=== PATIENT | female | born 1950 | race Caucasian/White ===

== ENCOUNTER 2018-04-07 09:32 | Emergency (ER) | payer MEDICARE, BC ==
--- NOTE | 2018-04-07 10:04 | ED Physician Documentation ---
History of Present Illness - History obtained from History obtained from: Patient, Family - History of Present Illness Timing: How many weeks ago (1) - Additonal information Additional information: 68-year-old female with no prior history has developed left upper chest pain that is radiating to the left arm. She has had some shortness of breath associated with this. She does start do some traveling in her job. 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 Review of Systems Constitutional: reports: Fatigue. denies: Fever, Chills, Myalgias Eyes: denies: Decreased vision Ears: denies: Ear pain Nose: reports: Rhinorrhea / runny nose, Congestion Throat: denies: Sore throat Cardiac: reports: Chest pain / pressure. denies: Palpitations, Pedal edema, Calf pain Respiratory: reports: Dyspnea, Cough. denies: Wheezing GI: denies: Abdominal Pain, Nausea, Vomiting : denies: Dysuria, Frequency Skin: denies: Rash Musculoskeletal: reports: Neck pain, Back pain, Extremity pain Neurologic: denies: Generalized weakness, Focal weakness, Numbness PD PAST MEDICAL HISTORY - Allergies Allergies/Adverse Reactions: Allergies Allergy/AdvReac Type Severity Reaction Status Date / Time No Known Drug Allergies Allergy Verified 04/07/18 09:41 PD ED PE NORMAL - Vitals Vital signs reviewed: Yes (hypertensive ) - General General: Alert and oriented X 3, No acute distress, Well developed/nourished - Neck Neck: Supple, no meningeal sign, No bony TTP, Other (There is some spasm to the trapezius but this does not extend to the occiput. There is tenderness to the supraspinatous on the left and over the anterior portion of the chest wall on the left side the area is not tender. 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, No motor deficit, No sensory deficit, Normal speech Eye Opening: Spontaneous Motor: Obeys Commands Verbal: Oriented GCS Score: 15 - Psych Psych: Normal mood, Normal affect Results - Vitals Vitals: Vital Signs - 24 hr 04/07/18 04/07/18 04/07/18 09:38 10:15 11:52 Temperature 36.2 C L 36.6 C Heart Rate 74 63 71 Respiratory 17 16 15 Rate Blood Pressure 133/93 H 118/76 119/76 O2 Saturation 98 96 97 Oxygen O2 Source Room air - EKG (time done) 0939 Rate: Rate (enter#) (69) Rhythm: NSR Ischemia: Normal ST segments Compare to prior EKG: Old EKG unavailable Computer interpretation: Agree with computer - Labs Labs: Laboratory Tests 04/07/18 04/07/18 04/07/18 10:02 10:02 10:02 WBC 4.4 L RBC 4.82 Hgb 14.7 Hct 42.7 MCV 88.7 MCH 30.5 MCHC 34.5 RDW 13.2 Plt Count 237 MPV 7.0 L Neut # (Auto) 2.5 Lymph # (Auto) 1.4 L [place] # (Auto) 0.3 Eos # (Auto) 0.1 Baso # (Auto) 0.0 Absolute Nucleated RBC 0.00 Nucleated RBC % 0.0 D-Dimer Sodium 139 Potassium 4.0 Chloride 105 Carbon Dioxide 26 Anion Gap 8.0 BUN 15 Creatinine 0.5 Estimated GFR (MDRD) 123 Glucose 92 Calcium 9.0 Total Bilirubin 0.7 AST 24 ALT 26 Alkaline Phosphatase 67 Troponin I < 0.04 Total Protein 6.6 L Albumin 4.0 Globulin 2.6 Albumin/Globulin Ratio 1.5 Lipase 44 Urine Color Urine Clarity Urine pH Ur Specific [place] Urine Protein Urine Glucose (UA) Urine Ketones Urine Occult Blood Urine Nitrite Urine Bilirubin Urine Urobilinogen Ur Leukocyte Esterase Ur Microscopic Review Urine Culture Comments 04/07/18 04/07/18 10:02 10:15 WBC RBC Hgb Hct MCV MCH MCHC RDW Plt Count MPV Neut # (Auto) Lymph # (Auto) [place] # (Auto) Eos # (Auto) Baso # (Auto) Absolute Nucleated RBC Nucleated RBC % D-Dimer < 200.0 L Sodium Potassium Chloride Carbon Dioxide Anion Gap BUN Creatinine Estimated GFR (MDRD) Glucose Calcium Total Bilirubin AST ALT Alkaline Phosphatase Troponin I Total Protein Albumin Globulin Albumin/Globulin Ratio Lipase Urine Color YELLOW Urine Clarity CLEAR Urine pH 7.0 Ur Specific [place] 1.010 Urine Protein NEGATIVE Urine Glucose (UA) NEGATIVE Urine Ketones NEGATIVE Urine Occult Blood NEGATIVE Urine Nitrite NEGATIVE Urine Bilirubin NEGATIVE Urine Urobilinogen 0.2 (NORMAL) Ur Leukocyte Esterase NEGATIVE Ur Microscopic Review NOT INDICATED Urine Culture Comments NOT INDICATED - Rads (name of study) 2 view chest Radiology: Prelim report reviewed (Impression: Normal two-view chest radiography.), EMP read indepedently, See rad report PD MEDICAL DECISION MAKING - ED course Complexity details: reviewed results, re-evaluated patient, considered differential, d/w patient, d/w family ED course: 68-year-old female with some atypical chest pain that appears to be related to tension in her left shoulder and neck has a lot of stress at her work. Today here in the emergency department she has a negative d-dimer and she does travel a fair amount. She has negative troponin she has a normal-appearing electrocardiogram and has no ectopy here in the emergency department. She has negative troponin. Her level of pain is ache. She is discharged to home with referral to her primary care doctor. - Sepsis Event Vital Signs: Vital Signs - 24 hr 04/07/18 04/07/18 04/07/18 09:38 10:15 11:52 Temperature 36.2 C L 36.6 C Heart Rate 74 63 71 Respiratory 17 16 15 Rate Blood Pressure 133/93 H 118/76 119/76 O2 Saturation 98 96 97 Oxygen O2 Source Room air Departure - Departure Disposition: 01 Home, Self Care Clinical Impression: Atypical chest pain, Stress at work Condition: Stable Instructions: ED Stress React, ED Chest Pain Atypical Unkn Cause Follow-Up: [facility] [Provider Group] Discharge Date/Time: 04/07/18 12:13
[2018-04-07 10:12] LABS: BASOPHILS % (AUTO) 0.8 %; EOSINOPHILS # (AUTO) 0.1 10^3/uL (0.0-0.7); EOSINOPHILS % (AUTO) 2.9 %; HGB - HEMOGLOBIN 14.7 g/dL (12.0-16.0); LYMPHOCYTES # (AUTO) 1.4 10^3/uL (1.5-3.5); LYMPHOCYTES % (AUTO) 32.1 %; MEAN CORPUSCULAR HEMOGLOBIN 30.5 pg (27.0-31.0); MEAN CORPUSCULAR HGB CONC 34.5 g/dL (32.0-36.0); MEAN CORPUSCULAR VOLUME 88.7 fL (81.0-99.0); MONOCYTES # (AUTO) 0.3 10^3/uL (0.0-1.0); MONOCYTES % (AUTO) 6.5 %; NEUTROPHILS # (AUTO) 2.5 10^3/uL (1.5-6.6); NEUTROPHILS % (AUTO) 57.7 %; PLT - PLATELET COUNT 237 10^3/uL (130-450); RED BLOOD COUNT 4.82 10^6/uL (4.20-5.40); RED CELL DISTRIBUTION WIDTH 13.2 % (12.0-15.0); WHITE BLOOD COUNT 4.4 x10^3/uL (4.8-10.8)
[2018-04-07 10:26] LABS: ALBUMIN/GLOBULIN RATIO 1.5 (1.0-2.2); BILIRUBIN,TOTAL 0.7 mg/dL (0.2-1.0); CREATININE 0.5 mg/dL (0.4-1.0); TOTAL PROTEIN 6.6 g/dL (6.7-8.2)
[2018-04-07 10:31] LABS: BILIRUBIN,URINE NEGATIVE (NEGATIVE); GLUCOSE, URINE (UA) NEGATIVE (NEGATIVE); KETONES,URINE (UA) NEGATIVE (NEGATIVE); LEUKOCYTE ESTERASE, URINE NEGATIVE (NEGATIVE); NITRITE,URINE NEGATIVE (NEGATIVE); OCCULT BLOOD,URINE NEGATIVE (NEGATIVE); PROTEIN,URINE NEGATIVE (NEGATIVE); UROBILINOGEN,URINE 0.2 (NORMAL) E.U./dL (NORMAL)
[2018-04-07 10:35] LABS: CLARITY,URINE CLEAR (CLEAR)
--- NOTE | 2018-04-07 10:42 | XRAY Report ---
Reason: left upper chest pain Procedure Date: 04/07/2018 Accession Number: [id number] / [id number] Procedure: XR - Chest 2 View X-Ray CPT Code: 97742 FULL RESULT: EXAM: CHEST RADIOGRAPHY EXAM DATE: 04/07/2018 10:30 AM. CLINICAL HISTORY: Left upper chest pain. COMPARISON: None. TECHNIQUE: 2 views. FINDINGS: Lungs/Pleura: No focal opacities evident. No pleural effusion. No pneumothorax. Normal volumes. Mediastinum: Heart and mediastinal contours are unremarkable. Other: None. IMPRESSION: Normal 2-view chest radiography. RADIA
[2018-04-07] MEDS ORDERED: DEXAMETHASONE 10 MG/ML VIAL PO STA (10:48)
[2018-04-07 11:55] VITALS: BP 119/76
== END 2018-04-07 12:13 | disposition home or self-care (01) ==
LOC: ED 09:32
DX: R07.89 Other chest pain (principal); Z56.89 Other problems related to employment
CPT/HCPCS: 36415; 71046; 80053; 81001; 81003; 83690; 84484; 85025; 85379; 87086; 93005; 99283; 99284

== ENCOUNTER 2019-05-23 11:08 | Emergency (ER) | payer MEDICARE, BC ==
--- NOTE | 2019-05-23 11:38 | ED Physician Documentation ---
History of Present Illness - Stated complaint Stated Complaint: COUGH/SORE THROAT/EAR PX - Chief complaint Chief Complaint: Resp - Additonal information Additional information: This is a 69 year old female presenting with cough, sorethroat, and ear discomfort for several days. She denies chest pain, dyspnea, vomiting, or abdominal pain. The discomfort in her ears is worse on the left side. She feels like they are plugged up. She denies fever. 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 - Present Medications Home Medications: Ambulatory Orders Medication Instructions Recorded Confirmed Amox/Clav 875/125 [Augmentin] 1 each PO Q12H #14 tablet 05/23/19 Benzonatate [Tessalon Perle] 100 - 200 mg PO TID PRN #30 capsule 05/23/19 Diphenhydramine HCl [Allergy 25 - 50 mg PO Q6HR PRN #30 tablet 05/23/19 Medication] Fluticasone [Flonase] 120 sprays TERENCE BID PRN #1 bottle 05/23/19 - Allergies Allergies/Adverse Reactions: Allergies Allergy/AdvReac Type Severity Reaction Status Date / Time No Known Drug Allergies Allergy Verified 05/23/19 11:16 - Social History Does the pt smoke?: No Smoking Status: Never smoker Does the pt drink ETOH?: Yes Does the pt have substance abuse?: No PD ED PE NORMAL - General General: Alert and oriented X 3 - HEENT HEENT: PERRL, Other (Serous effusion on left) - Neck Neck: Supple, no meningeal sign - Cardiac Cardiac: RRR - Respiratory Respiratory: No respiratory distress, Clear bilaterally - Abdomen Abdomen: Soft, Non tender, Non distended - Derm Derm: Warm and dry - Neuro Neuro: Alert and oriented X 3 Results - Vitals Vitals: Oxygen O2 Source Room air PD MEDICAL DECISION MAKING - ED course ED course: Pt is very well appearing, she has symptoms of a viral syndrome without fever or symptom duration or exam findings to suggest pneumonia or sinusitis. She does have a serous effusion on the left with signs of inflammation but without purulence at this time. I discussed that she has a viral URI with a serous otitis media, I prescribed flonase, diphenhydramine, tesslaon pearls, and discussed that if she is developing worsening left ear discomfort despite supportive care she may start the antibiotic prescribed. I recommended PCP follow up and reviewed return precautions and patient was discharged home. Departure - Departure Disposition: 01 Home, Self Care Clinical Impression: URI (upper respiratory infection) Qualifiers: URI type: unspecified viral URI Qualified Code(s): J06.9 - Acute upper respiratory infection, unspecified Serous otitis media Qualifiers: Chronicity: acute Laterality: left Recurrence: not specified as recurrent Qualified Code(s): H65.02 - Acute serous otitis media, left ear Condition: Good Instructions: ED Otitis Media Serous Adult, ED Viral Syndrome Follow-Up: Your,PCP [Other] - Within 1 week Prescriptions: Diphenhydramine HCl [Allergy Medication] 25 - 50 mg PO Q6HR PRN #30 tablet PRN Reason: Allergy Symptoms Amox/Clav 875/125 [Augmentin] 1 each PO Q12H #14 tablet Benzonatate [Tessalon Perle] 100 - 200 mg PO TID PRN #30 capsule PRN Reason: Cough Fluticasone [Flonase] 120 sprays TERENCE BID PRN #1 bottle PRN Reason: Nasal Congestion Comments: You appear to have a upper respiratory infection, you also have a collection of fluid behind your left eardrum. This may be due to an early infection, or it may be due to eustachian tube dysfunction from your viral illness. Please try the Flonase, Benadryl, as well as ibuprofen 600 mg every 6 hours and Tylenol 650 mg every 6 hours as needed for fever or discomfort. If you are developing increasing ear pain, fever, or if your symptoms are not improving you may start the antibiotic for ear infection. Follow-up with your primary care provider, And return to the emergency department if you are developing worsening symptoms such as shortness of breath or fever despite the Tylenol and ibuprofen Discharge Date/Time: 05/23/19 12:13
[2019-05-23 12:13] VITALS: BP 133/88
== END 2019-05-23 12:13 | disposition home or self-care (01) ==
LOC: ED 11:08
DX: J06.9 Acute upper respiratory infection, unspecified (principal); H65.02 Acute serous otitis media, left ear
CPT/HCPCS: 99283

== ENCOUNTER 2020-01-14 14:32 | Outpatient (CLI) | payer MEDICARE, BC | END 2020-01-14 14:33 | disposition home or self-care (01) | LOC: LAB 14:32 | PROVIDERS: ATTEND Registered Nurse | DX: R50.9 Fever, unspecified (principal) | CPT/HCPCS: 81599 ==

== ENCOUNTER 2020-05-21 16:25 | Outpatient (CLI) | payer MEDICARE, BC | END 2020-05-21 16:26 | disposition home or self-care (01) | LOC: COV 16:25 | PROVIDERS: ATTEND Family Medicine | DX: Z20.828 Contact with and (suspected) exposure to other viral communicable diseases (principal) ==

== ENCOUNTER 2020-08-23 12:10 | Outpatient (CLI) | payer MEDICARE, BC | END 2020-08-23 23:59 | disposition home or self-care (01) | LOC: COV 12:10 | PROVIDERS: ATTEND Family Medicine | DX: Z20.822 Contact with and (suspected) exposure to COVID-19 (principal) ==

== ENCOUNTER 2020-10-02 11:11 | Emergency (ER) | payer MEDICARE, BC ==
[2020-10-02] MEDS ORDERED: oxyCODONE 5 MG TABLET PO STA (11:36)
[2020-10-02] MEDS ORDERED: IBUPROFEN 600 MG TABLET PO STA (11:36)
--- NOTE | 2020-10-02 11:38 | ED Physician Documentation ---
PD HPI LOWER EXT INJURY - Stated complaint Stated Complaint: L LEG PX - Chief complaint Chief Complaint: Ext Problem - History obtained from History obtained from: Patient - Additional information Additional information: Leg pain in L hamstring starting last night. At times severe. No radiation. No weak/numb/tingling. No injury. 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 - Present Medications Home Medications: Ambulatory Orders Medication Instructions Recorded Confirmed Amox/Clav 875/125 [Augmentin] 1 each PO Q12H #14 tablet 05/23/19 Benzonatate [Tessalon Perle] 100 - 200 mg PO TID PRN #30 capsule 05/23/19 Diphenhydramine HCl [Allergy 25 - 50 mg PO Q6HR PRN #30 tablet 05/23/19 Medication] Fluticasone [Flonase] 120 sprays TERENCE BID PRN #1 bottle 05/23/19 Ibuprofen [Motrin] 800 mg PO Q8H PRN #10 tablet 10/02/20 Oxycodone HCl/Acetaminophen 1 - 2 each PO Q6H PRN #14 tablet 10/02/20 [Percocet 5-325 mg Tablet] - Allergies Allergies/Adverse Reactions: Allergies Allergy/AdvReac Type Severity Reaction Status Date / Time No Known Drug Allergies Allergy Verified 10/02/20 11:20 - Social History Does the pt smoke?: No Smoking Status: Never smoker Does the pt drink ETOH?: Yes Does the pt have substance abuse?: No PD ED PE NORMAL - Vitals Vital signs reviewed: Yes - General General: Alert and oriented X 3, No acute distress - Back Back: No CVA TTP, No spinal TTP - Extremities Extremities: Other (Muscular TTP upper l hamstring, no skin changes.) - Neuro Neuro: Alert and oriented X 3, No motor deficit, No sensory deficit, Normal speech Results - Vitals Vitals: Vital Signs - 24 hr 10/02/20 10/02/20 11:13 12:18 Temperature 36.8 C 36.6 C Heart Rate 83 71 Respiratory 18 18 Rate Blood Pressure 132/82 H 125/75 O2 Saturation 99 97 Oxygen O2 Source Room air - Labs Labs: Laboratory Tests 10/02/20 10/02/20 11:49 11:49 WBC 6.1 RBC 5.05 Hgb 15.0 Hct 45.4 MCV 89.9 MCH 29.7 MCHC 33.0 RDW 12.6 Plt Count 297 MPV 8.9 Neut # (Auto) 3.8 Lymph # (Auto) 1.7 [place] # (Auto) 0.5 Eos # (Auto) 0.1 Baso # (Auto) 0.0 Absolute Nucleated RBC 0.00 Nucleated RBC % 0.0 Sodium 138 Potassium 4.6 Chloride 105 Carbon Dioxide 24 Anion Gap 9.0 BUN 18 Creatinine 0.6 Estimated GFR (MDRD) 99 Glucose 94 Calcium 9.9 PD MEDICAL DECISION MAKING - ED course ED course: 70-year-old woman presents with pain in the hamstring. The focality and onset are not suggestive of DVT. Pain-free after meds here. She wonders if it might be shingles, discussed with her that it is possible although there is no rash now she will look out for it and return for specific treatment if a rash develops. Departure - Departure Disposition: 01 Home, Self Care Clinical Impression: Pain of lower extremity Qualifiers: Laterality: left Qualified Code(s): M79.605 - Pain in left leg Condition: Stable Record reviewed to determine appropriate education?: Yes Instructions: ED Acute Pain [facility]O Prescriptions: Ibuprofen [Motrin] 800 mg PO Q8H PRN #10 tablet PRN Reason: PAIN &/OR FEVER Oxycodone HCl/Acetaminophen [Percocet 5-325 mg Tablet] 1 - 2 each PO Q6H PRN #14 tablet PRN Reason: pain Comments: The cause of your pain is not clear, but nothing to suggest a serious or dangerous etiology. That said please return for new or worsening symptoms. Follow-up with your physician. Discharge Date/Time: 10/02/20 12:23
[2020-10-02 11:57] LABS: BASOPHILS % (AUTO) 0.7 %; EOSINOPHILS # (AUTO) 0.1 10^3/uL (0.0-0.7); EOSINOPHILS % (AUTO) 1.3 %; HCT - HEMATOCRIT 45.4 % (37.0-47.0); LYMPHOCYTES # (AUTO) 1.7 10^3/uL (1.5-3.5); MEAN CORPUSCULAR HEMOGLOBIN 29.7 pg (27.0-31.0); MEAN CORPUSCULAR VOLUME 89.9 fL (81.0-99.0); MEAN PLATELET VOLUME 8.9 fL (7.9-10.8); MONOCYTES # (AUTO) 0.5 10^3/uL (0.0-1.0); MONOCYTES % (AUTO) 7.7 %; NEUTROPHILS # (AUTO) 3.8 10^3/uL (1.5-6.6); PLT - PLATELET COUNT 297 10^3/uL (130-450); RED BLOOD COUNT 5.05 10^6/uL (4.20-5.40); RED CELL DISTRIBUTION WIDTH 12.6 % (12.0-15.0); WHITE BLOOD COUNT 6.1 x10^3/uL (4.8-10.8)
[2020-10-02 12:07] LABS: CALCIUM 9.9 mg/dL (8.5-10.3); CREATININE 0.6 mg/dL (0.4-1.0); POTASSIUM 4.6 mmol/L (3.5-5.0)
[2020-10-02 12:19] VITALS: BP 125/75
== END 2020-10-02 12:23 | disposition home or self-care (01) ==
LOC: ED 11:11
DX: M79.605 Pain in left leg (principal)
CPT/HCPCS: 36415; 80048; 85025; 99283; A9270

== ENCOUNTER 2021-10-30 19:22 | Emergency (ER) | payer MEDICARE, OTHER ==
[2021-10-30] MEDS ORDERED: SODIUM CHLORIDE 0.9% 1,000 ML IV STA (19:37)
[2021-10-30] MEDS ORDERED: ONDANSETRON 4 MG/2 ML VIAL IVP STA (19:48)
--- NOTE | 2021-10-30 19:51 | ED Physician Documentation ---
PD HPI ABD PAIN - Stated complaint Stated Complaint: FEVER,NAUSEA - Chief complaint Chief Complaint: Abd Pain - History obtained from History obtained from: Patient, Family - Additional information Additional information: 71-year-old woman with history of skin cancer and remote as well as history of diverticulitis presents with abdominal symptoms and fever. For the last 6 weeks on and off she has had episodes of vomiting and diarrhea lasting maybe a day, but then asymptomatic for about a week. Starting over the last few days she developed more significant persistent nausea but no diarrhea, body aches and fatigue as well as low abdominal and low back pain as well as a cough that is nonproductive. She has a runny nose but that is not acute, more chronic. She had COVID in the past and is unvaccinated for Covid. Review of Systems Ten Systems: 10 systems reviewed and negative Constitutional: reports: Fever, Chills, Fatigue Nose: reports: Rhinorrhea / runny nose Cardiac: denies: Chest pain / pressure, Palpitations Respiratory: reports: Cough. denies: Dyspnea GI: reports: Abdominal Pain, Nausea, Vomiting. 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 - Present Medications Home Medications: Ambulatory Orders Medication Instructions Recorded Confirmed Amox/Clav 875/125 [Augmentin] 1 each PO Q12H #14 tablet 05/23/19 Benzonatate [Tessalon Perle] 100 - 200 mg PO TID PRN #30 capsule 05/23/19 Fluticasone [Flonase] 120 sprays TERENCE BID PRN #1 bottle 05/23/19 diphenhydrAMINE HCL [Allergy 25 - 50 mg PO Q6HR PRN #30 tablet 05/23/19 Medication] Ibuprofen [Motrin] 800 mg PO Q8H PRN #10 tablet 10/02/20 Oxycodone HCl/Acetaminophen 1 - 2 each PO Q6H PRN #14 tablet 10/02/20 [Percocet 5-325 mg Tablet] - Allergies Allergies/Adverse Reactions: Allergies Allergy/AdvReac Type Severity Reaction Status Date / Time No Known Drug Allergies Allergy Verified 10/02/20 11:20 - Social History Does the pt smoke?: No Smoking Status: Never smoker Does the pt drink ETOH?: Yes Does the pt have substance abuse?: No - Family History Family history: reports: Non contributory - POLST Patient has POLST: No PD ED PE NORMAL - Vitals Vital signs reviewed: Yes - General General: Alert and oriented X 3, No acute distress - HEENT HEENT: Ears normal, Moist mucous membranes, Pharynx benign - Cardiac Cardiac: RRR, No murmur - Respiratory Respiratory: No respiratory distress, Clear bilaterally - Abdomen Abdomen: Other (Mild right lower quadrant tenderness without surgical signs, hyperactive bowel sounds) - Back Back: No CVA TTP, No spinal TTP - Derm Derm: Normal color, Warm and dry - Extremities Extremities: No edema, No calf tenderness / cord - Neuro Neuro: Alert and oriented X 3, Normal speech Results - Vitals Vitals: Vital Signs - 24 hr 10/30/21 10/30/21 19:24 21:32 Temperature 37.7 C Heart Rate 101 H 106 H Respiratory 16 19 Rate Blood Pressure 144/98 H 125/70 O2 Saturation 96 95 Oxygen O2 Source Room air - Labs Labs: Laboratory Tests 10/30/21 10/30/21 10/30/21 19:30 19:59 19:59 WBC 4.8 RBC 4.80 Hgb 14.4 Hct 43.1 MCV 89.8 MCH 30.0 MCHC 33.4 RDW 12.5 Plt Count 234 MPV 9.0 Neut # (Auto) 3.7 Lymph # (Auto) 0.5 L [place] # (Auto) 0.5 Eos # (Auto) 0.1 Baso # (Auto) 0.0 Absolute Nucleated RBC 0.00 Nucleated RBC % 0.0 Sodium 138 Potassium 4.1 Chloride 102 Carbon Dioxide 27 Anion Gap 9.0 BUN 14 Creatinine 0.5 Estimated GFR (MDRD) 122 Glucose 98 Lactic Acid Calcium 9.7 Total Bilirubin 0.5 AST 35 ALT 36 Alkaline Phosphatase 71 Total Protein 6.7 Albumin 4.2 Globulin 2.5 Albumin/Globulin Ratio 1.7 Urine Color YELLOW Urine Clarity CLEAR Urine pH 6.0 Ur Specific [place] 1.025 Urine Protein NEGATIVE Urine Glucose (UA) NEGATIVE Urine Ketones NEGATIVE Urine Occult Blood NEGATIVE Urine Nitrite NEGATIVE Urine Bilirubin NEGATIVE Urine Urobilinogen 0.2 (NORMAL) Ur Leukocyte Esterase NEGATIVE Urine RBC 0-5 Urine WBC 0-3 Ur Squamous Epith Cells RARE Squamous Urine Bacteria Rare Urine Culture Comments NOT INDICATED Nasal Adenovirus (PCR) Nasal B. parapertussis DNA (PCR) Nasal Coronavir 229E PCR Nasal Coronavir HKU1 PCR Nasal Coronavir NL63 PCR Nasal Coronavir OC43 PCR Nasal Enterovir/Rhinovir PCR Nasal Influenza B PCR Nasal Influenza A PCR Nasal Parainfluen 1 PCR Nasal Parainfluen 2 PCR Nasal Parainfluen 3 PCR Nasal Parainfluen 4 PCR Nasal RSV (PCR) Nasal B.pertussis DNA PCR Nasal C.pneumoniae (PCR) Terence Human Metapneumo PCR Nasal M.pneumoniae (PCR) Nasal SARS-CoV-2 (PCR) 10/30/21 10/30/21 19:59 19:59 WBC RBC Hgb Hct MCV MCH MCHC RDW Plt Count MPV Neut # (Auto) Lymph # (Auto) [place] # (Auto) Eos # (Auto) Baso # (Auto) Absolute Nucleated RBC Nucleated RBC % Sodium Potassium Chloride Carbon Dioxide Anion Gap BUN Creatinine Estimated GFR (MDRD) Glucose Lactic Acid 1.0 Calcium Total Bilirubin AST ALT Alkaline Phosphatase Total Protein Albumin Globulin Albumin/Globulin Ratio Urine Color Urine Clarity Urine pH Ur Specific [place] Urine Protein Urine Glucose (UA) Urine Ketones Urine Occult Blood Urine Nitrite Urine Bilirubin Urine Urobilinogen Ur Leukocyte Esterase Urine RBC Urine WBC Ur Squamous Epith Cells Urine Bacteria Urine Culture Comments Nasal Adenovirus (PCR) NOT DETECTED Nasal B. parapertussis DNA (PCR) NOT DETECTED Nasal Coronavir 229E PCR NOT DETECTED Nasal Coronavir HKU1 PCR NOT DETECTED Nasal Coronavir NL63 PCR NOT DETECTED Nasal Coronavir OC43 PCR NOT DETECTED Nasal Enterovir/Rhinovir PCR NOT DETECTED Nasal Influenza B PCR NOT DETECTED Nasal Influenza A PCR NOT DETECTED Nasal Parainfluen 1 PCR NOT DETECTED Nasal Parainfluen 2 PCR NOT DETECTED Nasal Parainfluen 3 PCR NOT DETECTED Nasal Parainfluen 4 PCR NOT DETECTED Nasal RSV (PCR) NOT DETECTED Nasal B.pertussis DNA PCR NOT DETECTED Nasal C.pneumoniae (PCR) NOT DETECTED Terence Human Metapneumo PCR NOT DETECTED Nasal M.pneumoniae (PCR) NOT DETECTED Nasal SARS-CoV-2 (PCR) DETECTED A - Rads (name of study) CT abd- nephrolith and divericulosis. Radiology: EMP read contemporaneously 1v cxr Radiology: EMP read contemporaneously (NAD) PD MEDICAL DECISION MAKING - ED course ED course: 71yo female with fever, abd pain and v/d. Appears well. Mild RLQ TTP on exam. Blood work unremarkable. Covid + Tx here with paxlovid pack. Departure - Departure Disposition: 01 Home, Self Care Clinical Impression: Abdominal pain, Vomiting, Diarrhea, COVID-19 Condition: Good Record reviewed to determine appropriate education?: Yes Instructions: ED Nausea Vomiting Follow-Up: [facility] [Provider Group] [facility] [Provider Group] Comments: Blood work is unremarkable, chest x-ray showing no acute abnormalities. CT, of note you do have a 7 mm stone in the right kidney. This is not passing right now but could bother you some day. You also have some hardening of the arteries and diverticulosis. We found that you were positive for COVID today, take the packs livid as prescribed. Return for new or worsening symptoms. After improvement she will need to follow-up with a primary care physician. A few local ones are listed on this form, but you do need to quarantine for the next 10 days. Discharge Date/Time: 10/30/21 22:12
[2021-10-30 19:54] LABS: BILIRUBIN,URINE NEGATIVE (NEGATIVE); GLUCOSE, URINE (UA) NEGATIVE (NEGATIVE); KETONES,URINE (UA) NEGATIVE (NEGATIVE); LEUKOCYTE ESTERASE, URINE NEGATIVE (NEGATIVE); NITRITE,URINE NEGATIVE (NEGATIVE); OCCULT BLOOD,URINE NEGATIVE (NEGATIVE); PROTEIN,URINE NEGATIVE (NEGATIVE); UROBILINOGEN,URINE 0.2 (NORMAL) E.U./dL (NORMAL)
[2021-10-30 19:55] LABS: CLARITY,URINE CLEAR (CLEAR)
[2021-10-30 20:04] LABS: BACTERIA,URINE Rare /HPF (None Seen); RBC,URINE 0-5 /HPF (0-5); SQUAMOUS EPITHELIAL CELL,UR RARE Squamous (<= Few); WBC,URINE 0-3 /HPF (0-5)
[2021-10-30 20:08] LABS: BASOPHILS % (AUTO) 0.6 %; EOSINOPHILS # (AUTO) 0.1 10^3/uL (0.0-0.7); EOSINOPHILS % (AUTO) 1.9 %; HCT - HEMATOCRIT 43.1 % (37.0-47.0); HGB - HEMOGLOBIN 14.4 g/dL (12.0-16.0); LYMPHOCYTES # (AUTO) 0.5 10^3/uL (1.5-3.5); LYMPHOCYTES % (AUTO) 9.8 %; MEAN CORPUSCULAR HGB CONC 33.4 g/dL (32.0-36.0); MEAN CORPUSCULAR VOLUME 89.8 fL (81.0-99.0); MONOCYTES # (AUTO) 0.5 10^3/uL (0.0-1.0); MONOCYTES % (AUTO) 10.2 %; NEUTROPHILS # (AUTO) 3.7 10^3/uL (1.5-6.6); NEUTROPHILS % (AUTO) 77.3 %; PLT - PLATELET COUNT 234 10^3/uL (130-450); RED CELL DISTRIBUTION WIDTH 12.5 % (12.0-15.0); WHITE BLOOD COUNT 4.8 x10^3/uL (4.8-10.8)
[2021-10-30 20:26] LABS: ALBUMIN 4.2 g/dL (3.2-5.5); ALBUMIN/GLOBULIN RATIO 1.7 (1.0-2.2); BILIRUBIN,TOTAL 0.5 mg/dL (0.2-1.0); CALCIUM 9.7 mg/dL (8.5-10.3); CREATININE 0.5 mg/dL (0.4-1.0); POTASSIUM 4.1 mmol/L (3.5-5.0); TOTAL PROTEIN 6.7 g/dL (6.7-8.2)
[2021-10-30] MEDS ORDERED: IOVERSOL 320 100 ML VIAL IVP ONE ×2 (20:40→21:10)
[2021-10-30 21:05] LABS: B. PARAPERTUSSIS- RESP PCR PAN NOT DETECTED; B. PERTUSSIS- RESP PCR PANEL NOT DETECTED; C. PNEUMONIAE- RESP PCR PANEL NOT DETECTED; CORONAVIRUS 229E-RESP PCR NOT DETECTED; CORONAVIRUS HKU1-RESP PCR NOT DETECTED; CORONAVIRUS NL63-RESP PCR NOT DETECTED; CORONAVIRUS OC43-RESP PCR NOT DETECTED; HUMAN METAPNEUMOVIRUS NOT DETECTED; INFLUENZA A- RESP PCR PANEL NOT DETECTED; INFLUENZA B - RESP PCR PANEL NOT DETECTED; M. PNEUMONIAE- RESP PCR PANEL NOT DETECTED; PARAINFLUENZA VIRUS 1 NOT DETECTED; PARAINFLUENZA VIRUS 2 NOT DETECTED; PARAINFLUENZA VIRUS 3 NOT DETECTED; PARAINFLUENZA VIRUS 4 NOT DETECTED; RHINOVIRUS/ENTEROVIRUS NOT DETECTED; RSV- RESP PCR PANEL NOT DETECTED
[2021-10-30 21:07] LABS: SARS-CoV-2 -RESP PCR PANEL DETECTED
[2021-10-30] MEDS ORDERED: NIRMATRELVIR/RITONAVIR PREPACK PO STA (21:29)
[2021-10-30 21:50] VITALS: BP 125/70
--- NOTE | 2021-10-30 21:50 | XRAY Report ---
PROCEDURE: Chest 2 View X-Ray INDICATIONS: fever cough TECHNIQUE: 2 view(s) of the chest. COMPARISON: 04/07/2018. FINDINGS: Surgical changes and devices: None. Lungs and pleura: No pleural effusions or pneumothorax. Minimal streaky left costophrenic angle line ar opacity likely representing atelectasis. No focal consolidation. Mediastinum: Mediastinal contours are normal. Heart size is normal. Bones and chest wall: No suspicious bony abnormalities. Soft tissues appear unremarkable. IMPRESSION: Minimal left basilar atelectasis/scarring. No focal consolidation. No acute cardiopulmon elana abnormality seen. Reviewed by: Chet Staples MD on 10/30/2021 9:49 PM PDT Approved by: Chet Staples MD on 10/30/2021 9:49 PM PDT Station ID: [id number]
--- NOTE | 2021-10-30 21:57 | CT Report ---
PROCEDURE: Abdomen/Pelvis W INDICATIONS: IV only, Low abd pain fver CONTRAST: IV CONTRAST: Optiray 320 ml: 100 PO CONTRAST: *NO PO CONTRAST TECHNIQUE: After the administration of weight appropriate dose of intravenous contrast, 5 mm thick sections acqu ired from the diaphragms to the symphysis. 5 mm thick coronal and sagittal reformats were acquired. For radiation dose reduction, the following was used: automated exposure control, adjustment of mA and/or kV according to patient size. COMPARISON: None. FINDINGS: Image quality: Excellent. ABDOMEN: Lung bases: Lung bases are clear. Heart size is normal. Solid organs: Liver and spleen are normal in size and enhancement. Gallbladder is unremarkable. Bi liary system is non dilated. Pancreas enhances normally. No adrenal nodules. Kidneys demonstrate n ormal size and enhancement, without hydronephrosis. Bilateral peripelvic cysts. Nonobstructing 7 mm r ight lower pole renal calculus measuring approximately 600 Hounsfield units. Peritoneum and bowel: Bowel loops demonstrate normal wall thickness and caliber. No free fluid or a ir. Normal appendix. Scattered colonic diverticulosis without acute diverticulitis. Nodes and vessels: No retroperitoneal or mesenteric adenopathy by size criteria. Aorta and inferior vena cava are normal in size. Mild atherosclerotic calcifications of the abdominal aorta and iliac vessels. Miscellaneous: No ventral hernias. PELVIS: Genitourinary: Bladder wall thickness is normal. No urinary bladder stone. Reproductive organs appea r unremarkable. Miscellaneous: No inguinal hernias or adenopathy. Bones: No suspicious bony lesions. No acute vertebral body compression fractures. Multilevel spond ylitic changes. IMPRESSION: 1. CT abdomen and pelvis without acute abnormalities. 2. A 7 mm nonobstructing renal calculus of the lower pole the right kidney. No evidence for hydroneph rosis or perinephric stranding. No evidence for obstructive uropathy . 3. Colonic diverticulosis without acute diverticulitis. 4. Mild atherosclerotic calcifications of the abdominal aorta. Reviewed by: Chet Staples MD on 10/30/2021 9:56 PM PDT Approved by: Chet Staples MD on 10/30/2021 9:56 PM PDT Station ID: [id number]
== END 2021-10-30 22:12 | disposition home or self-care (01) ==
LOC: ED 19:22
DX: U07.1 COVID-19 (principal); I10 Essential (primary) hypertension
CPT/HCPCS: 36415; 71046; 74177; 80053; 81001; 83605; 85025; 87040; 87633; 96361; 96374; 99283; 99284; J3490; Q9967; 87086

== ENCOUNTER 2021-12-10 12:50 | Outpatient (CLI) | payer MEDICARE, OTHER ==
[2021-12-10 17:57] LABS: BASOPHILS % (AUTO) 0.5 %; EOSINOPHILS # (AUTO) 0.1 10^3/uL (0.0-0.7); EOSINOPHILS % (AUTO) 1.8 %; HCT - HEMATOCRIT 44.9 % (37.0-47.0); HGB - HEMOGLOBIN 14.5 g/dL (12.0-16.0); LYMPHOCYTES # (AUTO) 1.5 10^3/uL (1.5-3.5); LYMPHOCYTES % (AUTO) 28.1 %; MEAN CORPUSCULAR HEMOGLOBIN 29.8 pg (27.0-31.0); MEAN CORPUSCULAR HGB CONC 32.3 g/dL (32.0-36.0); MEAN CORPUSCULAR VOLUME 92.2 fL (81.0-99.0); MONOCYTES # (AUTO) 0.4 10^3/uL (0.0-1.0); MONOCYTES % (AUTO) 6.8 %; NEUTROPHILS # (AUTO) 3.4 10^3/uL (1.5-6.6); NEUTROPHILS % (AUTO) 62.6 %; PLT - PLATELET COUNT 308 10^3/uL (130-450); RED BLOOD COUNT 4.87 10^6/uL (4.20-5.40); RED CELL DISTRIBUTION WIDTH 12.6 % (12.0-15.0); WHITE BLOOD COUNT 5.5 x10^3/uL (4.8-10.8)
[2021-12-10 18:22] LABS: ALBUMIN 4.1 g/dL (3.2-5.5); ALBUMIN/GLOBULIN RATIO 1.6 (1.0-2.2); BILIRUBIN,TOTAL 0.3 mg/dL (0.2-1.0); CALCIUM 9.6 mg/dL (8.5-10.3); CREATININE 0.5 mg/dL (0.4-1.0); POTASSIUM 4.5 mmol/L (3.5-5.0); TOTAL PROTEIN 6.7 g/dL (6.7-8.2)
[2021-12-10 18:36] LABS: THYROID STIMULATING HORMONE 1.91 uIU/mL (0.34-5.60)
== END 2021-12-10 23:59 | disposition home or self-care (01) ==
LOC: LAB.N 12:50
PROVIDERS: ATTEND Family Medicine
DX: R55 Syncope and collapse (principal)
CPT/HCPCS: 36415; 80053; 84443; 85025

== ENCOUNTER 2022-08-01 12:46 | Outpatient (CLI) | payer MEDICARE, OTHER ==
--- NOTE | 2022-08-01 16:34 | DEXA Report ---
PROCEDURE: Dexa Spine and/or Hip INDICATIONS: POST MENOPAUSAL TECHNIQUE: Dual energy x-ray absorptiometry (DXA) was performed on a [employer]. Regions measur ed are the AP Spine, femoral neck, and if needed forearm. COMPARISON: None. FINDINGS: Lumbar Spine: Bone Mineral Density 1.115 g/cm/cm,T score -0.5, normal Left Femoral Neck: Bone Mineral Density 0.888 g/cm/cm, T score -1.1, osteopenia Left Hip: Bone Mineral Density 0.929 g/cm/cm,T score -0.6, normal (T score greater or equal to -1.0: NORMAL) (T score from -1.1 to -2.4: OSTEOPENIA) (T score less than or equal to -2.5 to: OSTEOPOROSIS) Impression: 1. Osteopenia raises the patient's 10 year fracture risk. Patients with diagnosis of osteoporosis or osteopenia should have regular bone mineral density assess ment. For those eligible for Medicare, routine testing is allowed once every 2 years. Testing frequ ency can be increased for patients who have rapidly progressing disease or for those who are receivin g medical therapy to restore bone mass. Reviewed by: Edith Veloz MD on 08/01/2022 4:33 PM PST Approved by: Edith Veloz MD on 08/01/2022 4:33 PM PST Station ID: [id number]
== END 2022-08-01 12:47 | disposition home or self-care (01) ==
LOC: DI 12:46
PROVIDERS: ATTEND Physician Assistant
DX: M85.88 Other specified disorders of bone density and structure, other site (principal); Z78.0 Asymptomatic menopausal state

== ENCOUNTER 2022-08-01 12:47 | Outpatient (CLI) | payer MEDICARE, OTHER ==
--- NOTE | 2022-08-04 12:10 | Mammography Report ---
BILATERAL DIGITAL SCREENING MAMMOGRAM 3D/2D: 08/01/2022 CLINICAL: Routine screening. No prior exams were available for comparison. There are scattered areas of fibroglandular density in both breasts (category b / 25%-50% glandular t issue). No significant masses, calcifications, or other findings are seen in either breast. IMPRESSION: NEGATIVE There is no mammographic evidence of malignancy. A 1 year screening mammogram is recommended. Based on the Tyrer Cuzick model (a risk assessment model) the patients lifetime risk is 4.8% and her 10 year risk is 3.0%. According to the ACR, ACS, and NCCN guidelines, an annual breast MRI exam kristopher g with mammogram is recommended if the patients lifetime risk is 20% or greater. This exam was interpreted at Station ID: [id number]. NOTE: For mammograms, a report in lay terms will be sent to the patient. Approximately 15% of breast malignancies will not be visualized mammographically. In the management of a palpable breast mass, a negative mammogram must not discourage biopsy of a clinically suspicious lesion. Electronically Signed By: Brandin Gallo M.D., jr/mary:08/01/2022 14:41:33 ACR BI-RADS Category 1: Negative 3341F PARENCHYMAL PATTERN: (A) - The breast(s) demonstrate(s) scattered fibroglandular densities. BI-RADS CATEGORY: (1) - 1 RECOMMENDATION: (ANNUAL) - Recommend routine annual screening mammography. [id number] 1 year screening LATERALITY: (B)
== END 2022-08-01 12:48 | disposition home or self-care (01) ==
LOC: DI 12:47
PROVIDERS: ATTEND Physician Assistant
DX: Z12.31 Encounter for screening mammogram for malignant neoplasm of breast (principal)

== ENCOUNTER 2023-02-16 20:54 | Emergency (ER) | payer MEDICARE, OTHER ==
[2023-02-16 21:18] LABS: BASOPHILS # (AUTO) 0.1 10^3/uL (0.0-0.1); BASOPHILS % (AUTO) 0.8 %; EOSINOPHILS # (AUTO) 0.3 10^3/uL (0.0-0.7); EOSINOPHILS % (AUTO) 4.4 %; HCT - HEMATOCRIT 43.3 % (37.0-47.0); HGB - HEMOGLOBIN 14.1 g/dL (12.0-16.0); LYMPHOCYTES # (AUTO) 2.7 10^3/uL (1.5-3.5); LYMPHOCYTES % (AUTO) 36.7 %; MEAN CORPUSCULAR HEMOGLOBIN 29.5 pg (27.0-31.0); MEAN CORPUSCULAR HGB CONC 32.6 g/dL (32.0-36.0); MEAN CORPUSCULAR VOLUME 90.6 fL (81.0-99.0); MEAN PLATELET VOLUME 9.1 fL (7.9-10.8); MONOCYTES # (AUTO) 0.6 10^3/uL (0.0-1.0); MONOCYTES % (AUTO) 7.5 %; NEUTROPHILS # (AUTO) 3.7 10^3/uL (1.5-6.6); NEUTROPHILS % (AUTO) 50.5 %; PLT - PLATELET COUNT 276 10^3/uL (130-450); RED BLOOD COUNT 4.78 10^6/uL (4.20-5.40); RED CELL DISTRIBUTION WIDTH 12.9 % (12.0-15.0); WHITE BLOOD COUNT 7.3 x10^3/uL (4.8-10.8)
[2023-02-16 21:34] LABS: ALBUMIN/GLOBULIN RATIO 1.7 (1.0-2.2); BILIRUBIN,TOTAL 0.3 mg/dL (0.2-1.0); CALCIUM 10.2 mg/dL (8.5-10.3); CREATININE 0.6 mg/dL (0.6-1.3); TOTAL PROTEIN 6.4 g/dL (6.4-8.9)
[2023-02-16 21:40] LABS: BILIRUBIN,URINE NEGATIVE (NEGATIVE); GLUCOSE, URINE (UA) NEGATIVE (NEGATIVE); KETONES,URINE (UA) NEGATIVE (NEGATIVE); LEUKOCYTE ESTERASE, URINE SMALL (NEGATIVE); NITRITE,URINE NEGATIVE (NEGATIVE); OCCULT BLOOD,URINE LARGE (NEGATIVE); PROTEIN,URINE NEGATIVE (NEGATIVE); UROBILINOGEN,URINE 0.2 (NORMAL) E.U./dL (NORMAL)
[2023-02-16 21:47] LABS: CLARITY,URINE CLOUDY (CLEAR)
[2023-02-16] MEDS ORDERED: KETOROLAC 30 MG/ML VIAL IVP STA (21:54)
[2023-02-16] MEDS ORDERED: SODIUM CHLORIDE 0.9% 1,000 ML IV STA (21:54)
[2023-02-16] MEDS ORDERED: LIDOCAINE-MPF 2% 7 ML in SODIUM CHLORIDE 0.9% 50 ML IV STA (21:54)
[2023-02-16 21:58] LABS: BACTERIA,URINE Few /HPF (None Seen); SQUAMOUS EPITHELIAL CELL,UR FEW Squamous (<= Few)
[2023-02-16] MEDS ORDERED: LIDOCAINE-MPF 2% 5 ML VIAL ONE (22:14)
--- NOTE | 2023-02-17 00:29 | ED Physician Documentation ---
History of Present Illness - Stated complaint Stated Complaint: LOW BACK PX - Chief complaint Chief Complaint: Abd Pain - History obtained from History obtained from: Patient - History of Present Illness Timing: Today Pain level max: 9 Pain level now: 9 - Additonal information Additional information: 73-year female presents to the emergency department with onset of left flank pain today while out for a walk. Feels similar to prior kidney stones. Nothing makes it better or worse. She has not had a kidney stone about 12 to 14 years. No fevers. No chills. No diarrhea or constipation. No nausea or vomiting. She has had to have stones removed in the past. Does not currently see a urologist. No urinary symptoms. 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 - Present Medications Home Medications: Ambulatory Orders Medication Instructions Recorded Confirmed Fluticasone [Flonase] 120 sprays TERENCE BID PRN #1 bottle 05/23/19 06/05/22 - Allergies Allergies/Adverse Reactions: Allergies Allergy/AdvReac Type Severity Reaction Status Date / Time No Known Drug Allergies Allergy Verified 02/16/23 20:58 - Social History Does the pt smoke?: No Smoking Status: Never smoker Does the pt drink ETOH?: Yes Does the pt have substance abuse?: No - Immunizations Immunizations are current?: No Immunizations: Other immun not current - POLST Patient has POLST: No PD ED PE NORMAL - Vitals Vital signs reviewed: Yes - General General: Alert and oriented X 3, No acute distress - HEENT HEENT: Moist mucous membranes - Neck Neck: Supple, no meningeal sign - Cardiac Cardiac: RRR - Respiratory Respiratory: No respiratory distress, Clear bilaterally - Abdomen Abdomen: Soft, Non tender, Non distended - Back Back: No CVA TTP, No spinal TTP - Derm Derm: Warm and dry - Extremities Extremities: No edema - Neuro Neuro: Alert and oriented X 3 - Psych Psych: Normal mood, Normal affect Results - Vitals Vitals: Vital Signs - 24 hr 02/16/23 02/16/23 20:58 23:13 Temperature 36.5 C Heart Rate 80 87 Respiratory 20 16 Rate Blood Pressure 150/90 H 131/70 H O2 Saturation 96 98 Oxygen O2 Source Room air - Labs Labs: Laboratory Tests 02/16/23 02/16/23 02/16/23 21:12 21:12 21:27 WBC 7.3 RBC 4.78 Hgb 14.1 Hct 43.3 MCV 90.6 MCH 29.5 MCHC 32.6 RDW 12.9 Plt Count 276 MPV 9.1 Neut # (Auto) 3.7 Lymph # (Auto) 2.7 Wake # (Auto) 0.6 Eos # (Auto) 0.3 Baso # (Auto) 0.1 Absolute Nucleated RBC 0.00 Nucleated RBC % 0.0 Sodium 140 Potassium 4.0 Chloride 109 Carbon Dioxide 26 Anion Gap 5.0 L BUN 13 Creatinine 0.6 Estimated GFR (MDRD) 99 Glucose 101 Calcium 10.2 Total Bilirubin 0.3 AST 17 ALT 17 Alkaline Phosphatase 72 Total Protein 6.4 Albumin 4.0 Globulin 2.4 Albumin/Globulin Ratio 1.7 Lipase 64 Urine Color YELLOW Urine Clarity CLOUDY Urine pH 5.0 Ur Specific [place] >=1.030 H Urine Protein NEGATIVE Urine Glucose (UA) NEGATIVE Urine Ketones NEGATIVE Urine Occult Blood LARGE H Urine Nitrite NEGATIVE Urine Bilirubin NEGATIVE Urine Urobilinogen 0.2 (NORMAL) Ur Leukocyte Esterase SMALL H Urine RBC 6-10 H Urine WBC 6-10 H Ur Squamous Epith Cells FEW Squamous Urine Bacteria Few Ur Microscopic Review INDICATED Urine Culture Comments INDICATED PD Medical Decision Making - ED course Complexity details: reviewed results, re-evaluated patient, considered differential, d/w patient ED course: Patient was given IV Toradol, IV lidocaine and saline. No significant lab abnormalities. Does have some squamous cells, urine appears mostly contaminated. CT scan was performed. This is pending at the time of signout. Patient will be signed out to Dr. Soler to follow-up on CT scan. Pain well controlled. This document was made in part using voice recognition software. While efforts are made to proofread this document, sound alike and grammatical errors may occur. Departure - Departure Clinical Impression: Flank pain Condition: Stable
--- NOTE | 2023-02-17 00:55 | CT Report ---
PROCEDURE: ABDOMEN/PELVIS WO INDICATIONS: L flank pain, h/o renal stones TECHNIQUE: A CT scan of the abdomen and pelvis was performed without the use of intravenous contrast. Images we re recorded and evaluated at appropriate window settings. Reformats: coronal and sagittal. For radiat ion dose reduction, the following was used: automated exposure control, adjustment of mA and/or kV ac cording to patient size. COMPARISON: CT abdomen pelvis 11/16/2021. FINDINGS: Image quality: Excellent. Lung bases: There is mild dependant atelectasis and scarring. Heart: Heart is normal in size. URINARY: Right Kidney and Ureter: There is a nonobstructing stone within the right kidney measuring up to 0. 7 cm with attenuation values of 700-800 Hounsfield units. No hydronephrosis. There are multiple para pelvic renal cysts. No hydroureter. Left Kidney and Ureter: No stones or hydronephrosis. There are multiple parapelvic renal cysts. No hydroureter. Bladder: Normal wall thickness. No stones. ABDOMEN: Liver: Noncontrast evaluation of the liver demonstrates no discrete mass. Gallbladder: Within normal limits without calcified gallstones. Biliary ducts: No biliary ductal dilatation. Pancreas: Unremarkable. Spleen: Normal in size. Adrenal Glands: No adrenal nodules. Stomach and Bowel: Stomach, small bowel loops, and colon are normal in caliber and wall thickness. T he appendix is normal. There is colonic diverticulosis without acute diverticulitis. Peritoneum: No abnormal intraperitoneal fluid. No free air. Ventral Wall: No hernia. Abdominal Nodes: No retroperitoneal or mesenteric adenopathy by size criteria. Vessels: Aorta and inferior vena cava are normal in size. PELVIS: Pelvic Organs: Unremarkable. Pelvic Nodes: No enlarged lymph nodes. Miscellaneous: No inguinal hernias identified. Bones: Visualized osseous structures demonstrate no suspicious focal lesions. IMPRESSION: 1. Right nephrolithiasis without evidence of obstructive uropathy. 2. Colonic diverticulosis without acute diverticulitis. Reviewed by: Ish Ventura MD on 02/17/2023 12:54 AM PDT Approved by: Ish Ventura MD on 02/17/2023 12:54 AM PDT Station ID: [id number]
[2023-02-17 01:14] VITALS: BP 131/74
--- NOTE | 2023-02-17 03:40 | ED Physician Documentation ---
ED Addendum - Addendum Addendum: 02/17/23 03:27 I received signout of care of this patient from Dr. Padilla; please see his note for complete history and physical. In brief, this patient presents for left flank pain that is consistent with previous episodes of renal colic. Patient tells me she has had many previous ki dney stones that required procedural intervention (including ESWL, ureteroscopic retrieval (her description is c/w forceps and/or basket retrieval)), and thus is quite familiar with the signs and symptoms of renal colic. There are no acute/explanatory findings on bairon's CT of the abdomen and pelvis. Incidental findings include right intrarenal calculus as well as diverticulosis. There is no evidence of ureteral obstruction on either side, and no evidence of diverticulitis. I reviewed this result with the patient. When I enter the room, the patient is asleep, awakens easily to voice. She is in NAD and reports that she is asymptomatic. Given her history of multiple episodes of renal colic with multiple urologic interventions for stone retrieval/removal, and her report that bairon's symptoms were strongly consistent with previous episodes of renal colic, I suspect she passed a left-sided ureteral stone sometime between presentation to ED and completion of the CT scan. The resolution of her symptoms, the other test results, and the resolution of her pain without more aggressive intervention and intravenous lidocaine all suggest against concerning alternative diagnoses. Patient is comfortable with d/c home. Return precautions are discussed.
== END 2023-02-17 02:17 | disposition home or self-care (01) ==
LOC: ED 20:54
DX: R10.9 Unspecified abdominal pain (principal)
CPT/HCPCS: 36415; 74176; 80053; 81001; 83690; 85025; 87086; 96374; 99284; J7040; 81003

== ENCOUNTER 2023-07-16 09:21 | Emergency (ER) | payer MEDICARE, OTHER ==
--- NOTE | 2023-07-16 10:02 | XRAY Report ---
PROCEDURE: Chest 1V INDICATIONS: SOB TECHNIQUE: One view of the chest was acquired. COMPARISON: Chest x-ray 10/30/2021. FINDINGS: Surgical changes and devices: None. Lungs and pleura: No pleural effusions or pneumothorax. Lungs are clear. Mediastinum: Mediastinal contours appear normal. Heart size is normal. Bones and chest wall: No suspicious bony lesions. Overlying soft tissues appear unremarkable. IMPRESSION: No acute cardiopulmonary process. Reviewed by: Sid Montanez MD on 07/16/2023 10:01 AM [facility] Approved by: Sid Montanez MD on 07/16/2023 10:01 AM [facility] Station ID: [id number]
[2023-07-16 10:46] LABS: B. PARAPERTUSSIS- RESP PCR PAN NOT DETECTED; B. PERTUSSIS- RESP PCR PANEL NOT DETECTED; C. PNEUMONIAE- RESP PCR PANEL NOT DETECTED; CORONAVIRUS 229E-RESP PCR NOT DETECTED; CORONAVIRUS HKU1-RESP PCR NOT DETECTED; CORONAVIRUS NL63-RESP PCR NOT DETECTED; CORONAVIRUS OC43-RESP PCR NOT DETECTED; HUMAN METAPNEUMOVIRUS NOT DETECTED; INFLUENZA A- RESP PCR PANEL NOT DETECTED; INFLUENZA B - RESP PCR PANEL NOT DETECTED; M. PNEUMONIAE- RESP PCR PANEL NOT DETECTED; PARAINFLUENZA VIRUS 1 NOT DETECTED; PARAINFLUENZA VIRUS 2 NOT DETECTED; PARAINFLUENZA VIRUS 3 NOT DETECTED; PARAINFLUENZA VIRUS 4 NOT DETECTED; RHINOVIRUS/ENTEROVIRUS NOT DETECTED; RSV- RESP PCR PANEL NOT DETECTED
[2023-07-16 10:49] LABS: SARS-CoV-2 -RESP PCR PANEL DETECTED
--- NOTE | 2023-07-16 12:41 | ED Physician Documentation ---
PD HPI URI - Stated complaint Stated Complaint: NAUSEA/HEAVY CHEST - Chief complaint Chief Complaint: Resp - History obtained from History obtained from: Patient - History of Present Illness Timing - onset: How many weeks ago (1) Timing duration: Weeks (1) Timing details: Gradual onset, Still present (has had fevers, cough, upper back pain with coughing, fatigue and nausea. Persistnet cough and is having increased back pain with coughing, so here for eval. Had negative COVID test at home couple days into illness.) Associated symptoms: Fever, Chills, Dry cough, Dyspnea, NVD Contributing factors: No: Sick contact, Immunocompromised, COPD / asthma Improves by: No: Medication Worsened by: Activity, Other (coughing) Similar symptoms before: Has not had sx before Recently seen: Not recently seen Review of Systems Constitutional: reports: Fever, Chills, Myalgias Nose: reports: Congestion Throat: denies: Sore throat Cardiac: denies: Chest pain / pressure, Palpitations Respiratory: reports: Dyspnea, Cough GI: reports: Nausea. 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 - Present Medications Home Medications: Ambulatory Orders Medication Instructions Recorded Confirmed Fluticasone [Flonase] 120 sprays TERENCE BID PRN #1 bottle 05/23/19 06/05/22 Albuterol Sulf [Ventolin Hfa 2 - 3 puffs INH QID #1 each 07/16/23 Inhaler] HYDROcod/ACETAM 5/325 [[place] 5/325] 1 ea PO Q6H PRN #18 tablet 07/16/23 Ondansetron Odt [Zofran] 4 mg TL Q6H PRN #10 tablet 07/16/23 dexAMETHasone [Decadron] 4 mg PO DAILY #5 tablet 07/16/23 - Allergies Allergies/Adverse Reactions: Allergies Allergy/AdvReac Type Severity Reaction Status Date / Time No Known Drug Allergies Allergy Verified 02/16/23 20:58 - Social History Does the pt smoke?: No Smoking Status: Never smoker Does the pt drink ETOH?: Yes Does the pt have substance abuse?: No - Immunizations Immunizations are current?: No Immunizations: Other immun not current - POLST Patient has POLST: No PD ED PE NORMAL - Vitals Vital signs reviewed: Yes - General General: Alert and oriented X 3, Well developed/nourished, Other (appers ill and drained/ weak talking and interacting. ) - HEENT HEENT: Pharynx benign - Neck Neck: Supple, no meningeal sign, No adenopathy - Cardiac Cardiac: RRR, No murmur - Respiratory Respiratory: No respiratory distress. No: Clear bilaterally (no coarse sounds. Has some barking component with cough, almost croupy, and exp wheezing. No back tenderness to palpation. ) Results - Vitals Vitals: Oxygen O2 Source Room air - Labs Labs: Laboratory Tests 07/16/23 09:48 Nasal Adenovirus (PCR) NOT DETECTED Nasal B. parapertussis DNA (PCR) NOT DETECTED Nasal Coronavir 229E PCR NOT DETECTED Nasal Coronavir HKU1 PCR NOT DETECTED Nasal Coronavir NL63 PCR NOT DETECTED Nasal Coronavir OC43 PCR NOT DETECTED Nasal Enterovir/Rhinovir PCR NOT DETECTED Nasal Influenza B PCR NOT DETECTED Nasal Influenza A PCR NOT DETECTED Nasal Parainfluen 1 PCR NOT DETECTED Nasal Parainfluen 2 PCR NOT DETECTED Nasal Parainfluen 3 PCR NOT DETECTED Nasal Parainfluen 4 PCR NOT DETECTED Nasal RSV (PCR) NOT DETECTED Nasal B.pertussis DNA PCR NOT DETECTED Nasal C.pneumoniae (PCR) NOT DETECTED Terence Human Metapneumo PCR NOT DETECTED Nasal M.pneumoniae (PCR) NOT DETECTED Nasal SARS-CoV-2 (PCR) DETECTED A - Rads (name of study) chest xray Relevant Findings:: Prelim report reviewed (no acute cardiopulmonary process. ), EMP independent interpretation of test PD Medical Decision Making - ED course Complexity details: reviewed results (has COVID. No penumonia on Xray nor PTX/effusion. Can treat the pleurisy/muscular back pain with TYlenol, steroids and help cough with inhaler. ), considered differential (URI and viral type symptons. with cough for a week that is now causing back pain with cough. CXR to eval for pneumonia and PTX/effusiond. ), d/w patient Departure - Departure Disposition: 01 Home, Self Care Clinical Impression: COVID-19 Dyspnea Qualifiers: Dyspnea type: shortness of breath Qualified Code(s): R06.02 - Shortness of breath; R06.00 - Dyspnea, unspecified; R06.01 - Orthopnea Back pain Qualifiers: Back pain location: thoracic back pain Chronicity: acute Back pain laterality: bilateral Qualified Code(s): M54.6 - Pain in thoracic spine Condition: Stable Record reviewed to determine appropriate education?: Yes Instructions: ED Viral Syndrome Prescriptions: dexAMETHasone [Decadron] 4 mg PO DAILY #5 tablet HYDROcod/ACETAM 5/325 [[place] 5/325] 1 ea PO Q6H PRN #18 tablet PRN Reason: Pain Albuterol Sulf [Ventolin Hfa Inhaler] 2 - 3 puffs INH QID #1 each Ondansetron Odt [Zofran] 4 mg TL Q6H PRN #10 tablet PRN Reason: Nausea / Vomiting Comments: Your respiratory viral testing is positive for COVID. This no doubt is given you the added symptoms but will increase your trouble breathing and cough due to the bronchial/lung irritation still leftover from your recent RSV. Will try to help the symptoms with a combination of albuterol inhaler 2 to 3 puffs 4 times daily, along with an anti-inflammatory for the bronchioles, Decadron daily for 5 days. Additionally use Tylenol every 4-6 hours for fevers and pains. To that add hydrocodone/acetaminophen if needed for worse pain. Add ondansetron if needed for nausea. Stay well-hydrated. The illness from COVID typically is a 5 to 7-day type illness but the coughing, fatigue, shortness of breath can persist to some degree for even a month or so. I sent your prescriptions to [facility] in [place]. Forms: PCP List Discharge Date/Time: 07/16/23 13:45
[2023-07-16] MEDS ORDERED: ACETAMINOPHEN 325 MG TABLET PO STA (13:14)
[2023-07-16] MEDS ORDERED: dexAMETHasone 4 MG TABLET PO STA (13:14)
[2023-07-16] MEDS ORDERED: ALBUTEROL 1 PUFF INH STA (13:14)
[2023-07-16 13:51] VITALS: BP 123/88; O2SAT 96
== END 2023-07-16 13:45 | disposition home or self-care (01) ==
LOC: ED 09:21
DX: U07.1 COVID-19 (principal); M54.6 Pain in thoracic spine; R06.02 Shortness of breath; R06.00 Dyspnea, unspecified; R06.01 Orthopnea; I10 Essential (primary) hypertension
CPT/HCPCS: 71045; 87633; 94640; 94664; 99284; A9270; J8540